=== PATIENT | male | born 1935 | race Caucasian/White ===

== ENCOUNTER → 2016-11-26 | Outpatient (CLI) | payer MEDICARE, BC ==
[~2016-11-26] MED LIST: APRESOLINE25 MG PO; CENTRUM COMPLE1 EACH PO; COUMADIN2.5 MG PO; COUMADIN3 MG PO; CRESTOR10 MG PO; ECOTRIN81 MG PO; HYDRALAZINE HCL25 MG PO; HYDROCHLOROTH12.5 MG PO; HYDROCODON-ACE1 EAC4 PO; ISOSORBIDE DINI30 MG PO; LANTUS100 UNIT/1 SUBCUT; LASIX40 MG PO; LUMIGAN 0.01%2.5 ML EYEBOTH; SYNTHROID50 MCG PO; VITAMIN C500 M1 PO; VITAMIN D31000 UNI1 PO; ZYLOPRIM100 MG PO
== END | disposition short-term general hospital (02) ==
LOC: CLNEPH 09:45
DX: I25.10 Atherosclerotic heart disease of native coronary artery without angina pectoris (principal); E03.9 Hypothyroidism, unspecified; C67.9 Malignant neoplasm of bladder, unspecified; E11.22 Type 2 diabetes mellitus with diabetic chronic kidney disease; I12.9 Hypertensive chronic kidney disease with stage 1 through stage 4 chronic kidney disease, or unspecified chronic kidney disease; N18.3 Chronic kidney disease, stage 3 (moderate); D63.1 Anemia in chronic kidney disease; I48.91 Unspecified atrial fibrillation

== ENCOUNTER → 2016-12-28 | Outpatient (CLI) | payer MEDICARE, BC | END | disposition short-term general hospital (02) | LOC: CLCARD 08:45 | DX: I25.10 Atherosclerotic heart disease of native coronary artery without angina pectoris (principal); I48.91 Unspecified atrial fibrillation; I10 Essential (primary) hypertension; E78.5 Hyperlipidemia, unspecified; E11.9 Type 2 diabetes mellitus without complications; Z79.01 Long term (current) use of anticoagulants ==

== ENCOUNTER 2017-02-02 14:51 | Inpatient (IN) | payer MEDICARE, BC ==
[~2017-02-02] VITALS: Ht 170.2 cm; Wt 105.2 kg
[2017-02-02] MEDS ORDERED: COUMADIN3 MG PO (15:23)
[2017-02-02] MEDS ORDERED: COUMADIN2.5 MG PO (15:28)
[2017-02-02] MEDS ORDERED: CRESTOR10 MG PO (16:08)
[2017-02-02] MEDS ORDERED: LASIX40 MG PO (16:09)
[2017-02-02] MEDS ORDERED: HYDROCHLOROTH12.5 MG PO (16:10)
[2017-02-02] MEDS ORDERED: ZYLOPRIM100 MG PO (16:10)
[2017-02-02] MEDS ORDERED: SYNTHROID50 MCG PO (16:10)
[2017-02-02] MEDS ORDERED: LANTUS100 UNIT/1 SUBCUT (16:11)
[2017-02-02] MEDS ORDERED: LUMIGAN 0.01%2.5 ML EYEBOTH (16:11)
[2017-02-02] MEDS ORDERED: ISOSORBIDE DINI30 MG PO (16:14)
[2017-02-02] MEDS ORDERED: VITAMIN C500 M1 PO (16:15)
[2017-02-02] MEDS ORDERED: HYDROCODON-ACE1 EAC4 PO (16:15)
[2017-02-02] MEDS ORDERED: ECOTRIN81 MG PO (16:15)
[2017-02-02] MEDS ORDERED: CENTRUM COMPLE1 EACH PO (16:16)
[2017-02-02] MEDS ORDERED: VITAMIN D31000 UNI1 PO (16:16)
[2017-02-02] MEDS ORDERED: HYDRALAZINE HCL25 MG PO (18:56)
[2017-02-02] MEDS ORDERED: APRESOLINE25 MG PO (18:56)
== END 2017-02-05 11:50 | disposition short-term general hospital (02) | DRG 379 ==
LOC: ER 14:51 → IP 17:00
PROVIDERS: ADMIT Family Medicine
PROC: 30233N1 Transfusion of Nonautologous Red Blood Cells into Peripheral Vein, Percutaneous Approach (ICD-10-PCS; principal; 2017-02-02)
PROC: B246ZZZ Ultrasonography of Right and Left Heart (ICD-10-PCS; 2017-02-03)
DX: K92.1 Melena (principal); R55 Syncope and collapse; D64.9 Anemia, unspecified; I48.91 Unspecified atrial fibrillation; Z79.01 Long term (current) use of anticoagulants; I25.10 Atherosclerotic heart disease of native coronary artery without angina pectoris; E11.21 Type 2 diabetes mellitus with diabetic nephropathy; E11.22 Type 2 diabetes mellitus with diabetic chronic kidney disease; N18.9 Chronic kidney disease, unspecified; I12.9 Hypertensive chronic kidney disease with stage 1 through stage 4 chronic kidney disease, or unspecified chronic kidney disease; I27.2 Other secondary pulmonary hypertension; I08.3 Combined rheumatic disorders of mitral, aortic and tricuspid valves
CPT/HCPCS: J1815; J1940; J3430

== ENCOUNTER → 2017-02-22 | Outpatient (CLI) | payer MEDICARE, BC | END | disposition short-term general hospital (02) | LOC: CLCARD 11:18 | DX: I25.810 Atherosclerosis of coronary artery bypass graft(s) without angina pectoris (principal); E11.9 Type 2 diabetes mellitus without complications; I10 Essential (primary) hypertension; E78.5 Hyperlipidemia, unspecified; I44.0 Atrioventricular block, first degree; Z79.4 Long term (current) use of insulin ==

== ENCOUNTER → 2017-02-25 | Outpatient (CLI) | payer MEDICARE, BC | END | disposition short-term general hospital (02) | LOC: CLNEPH 12:58 | DX: I12.9 Hypertensive chronic kidney disease with stage 1 through stage 4 chronic kidney disease, or unspecified chronic kidney disease (principal); E11.22 Type 2 diabetes mellitus with diabetic chronic kidney disease; N18.4 Chronic kidney disease, stage 4 (severe); D63.1 Anemia in chronic kidney disease; I25.10 Atherosclerotic heart disease of native coronary artery without angina pectoris; C67.9 Malignant neoplasm of bladder, unspecified; E03.9 Hypothyroidism, unspecified; R60.1 Generalized edema ==

== ENCOUNTER → 2017-03-02 | Outpatient (CLI) | payer MEDICARE, BC | END | disposition short-term general hospital (02) | LOC: CLPULM 08:15 | DX: G47.33 Obstructive sleep apnea (adult) (pediatric) (principal); E66.9 Obesity, unspecified; I25.10 Atherosclerotic heart disease of native coronary artery without angina pectoris; I10 Essential (primary) hypertension; E03.9 Hypothyroidism, unspecified; M10.9 Gout, unspecified; E78.5 Hyperlipidemia, unspecified; R60.0 Localized edema; C67.9 Malignant neoplasm of bladder, unspecified; I48.0 Paroxysmal atrial fibrillation; E11.9 Type 2 diabetes mellitus without complications; Z95.1 Presence of aortocoronary bypass graft; Z79.01 Long term (current) use of anticoagulants ==